=== PATIENT | male | born 1980 | race Caucasian/White ===

== ENCOUNTER 2022-05-31 13:20 | Outpatient (CLI) | payer OTHER, SELFPAY ==
[2022-05-31 15:15] LABS: Chloride* 101 mmol/L (96-114)
[2022-05-31 15:16] LABS: Potassium* 3.8 mmol/L (3.6-5.1); Sodium* 139 mmol/L (135-149)
[2022-05-31 15:18] LABS: Cholesterol* 255 mg/dL (90-199); Creatinine* 0.7 mg/dL (0.5-1.5); Estimated Glomerular Filt Rate 117 ml/min
[2022-05-31 15:19] LABS: Blood Urea Nitrogen* 13 mg/dL (5-24); Carbon Dioxide* 28 mmol/L (20-32); Glucose* 86 mg/dL (60-115); Triglycerides* 146 mg/dL (40-149)
[2022-05-31 15:20] LABS: Calcium* 9.8 mg/dL (8.4-10.6); HDL Cholesterol* 54 mg/dL (>=40); LDL Cholesterol Calculated 172 mg/dL (<100)
[2022-05-31 15:52] LABS: C Reactive Protein* < 0.5 mg/dL (0.5-1.0)
[2022-06-01 23:19] LABS: Rheumatoid Factor <10 IU/mL (0-14); Testosterone, Adult Male 410 ng/dL (300-890)
[2022-06-02 03:02] LABS: Anti-Nuclear Ab(ANA)IgG ELISA None Detected (None Detected)
== END 2022-05-31 13:21 | disposition home or self-care (01) ==
PROVIDERS: PCP Family Medicine; Visit Provider Family Medicine
DX: R53.83 Other fatigue (principal); M25.50 Pain in unspecified joint; Z13.6 Encounter for screening for cardiovascular disorders
CPT/HCPCS: 80048; 80061; 84403; 84443; 86039; 86140; 86431; 86617; 86618